=== PATIENT | female | born 1970 | race Caucasian/White ===

== ENCOUNTER 2022-10-08 08:08 | Day surgery (SDC) | payer OTHER ==
[~2022-10-08] VITALS: Ht 160 cm; Wt 72.6 kg
== END 2022-10-08 22:55 | disposition home or self-care (01) ==
LOC: CIR.AMB 08:08
PROVIDERS: ATTEND Orthopaedic Surgery Hand Surgery
DX: S52.591A Other fractures of lower end of right radius, initial encounter for closed fracture (principal); Z88.2 Allergy status to sulfonamides
CPT/HCPCS: 25609; L8699